=== PATIENT | male | born 1990 | race Caucasian/White ===

== ENCOUNTER 2018-02-09 12:51 | Emergency (ER) | payer SELFPAY ==
[2018-02-09] MEDS ORDERED: Sodium Chloride 0.9% 10 ML Syringe FLUSH PRN (13:04)
[2018-02-09] MEDS: Sodium Chloride 0.9% 1,000 ML IV SCH (13:15)
[2018-02-09] MEDS: Ketorolac 15 MG/ML SDV IVPUSH ONE (13:15)
[2018-02-09] MEDS: methylPREDNISolone Sodium Succinate 125 MG/2 ML SDV IVPUSH ONE (13:17)
[2018-02-09 13:59] LABS: CHLORIDE,CL 102 mmol/L (98-107); SODIUM,NA 137 mmol/L (136-145)
[2018-02-09] MEDS: Doxycycline 100 MG Cap PO ONE (13:59)
[2018-02-09 14:00] LABS: ANION GAP 12.7 mmol/L (10-20)
--- NOTE | 2018-02-09 14:03 | EDM.PDOC ---
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 As part of his job he is in [place] routinely. Reports numerous tick exposures. He states he noticed a tick on his chest and he pulled it out. This was approximately 5 days ago. No significant medical history. He does vape, drinks 3-4 times weekly of 5-6 beers. No recreational drug use. He describes his right foot becoming painful and swollen yesterday and today when he woke, both feet were swollen and painful with the right greater than left. Describes that pain as pressure. He reports it is painful to walk. He does have a historical ankle repair to the right foot due to an old fracture. Surgery performed in 2005. He has no other complaints. No chest pain, sob, abdominal pain, no blood in urine or stool and is regularly voiding both with no difficulty. Onset Date: 02/08/18 Duration: Getting Worse Location: Reports: Lower Extremity, Left, Lower Extremity, Right Quality: Reports: Pressure, Stabbing Severity: Moderate Improves with: Reports: Cold Therapy Treatments MRI TECH: Reports: Acetaminophen Bilateral Feet Pain Score (Numeric/FACES): 10 - Related Data Allergies Allergy/AdvReac Type Severity Reaction Status Date / Time No Known Allergies Allergy Verified 02/09/18 13:49 Home Meds: Home Meds . [No Known Home Meds] 02/09/18 [History] Review of Systems - Review of Systems Review Of Systems: See Below Constitutional: Reports: Chills Eyes: Reports: No Symptoms Ears: Reports: No Symptoms Nose: Reports: No Symptoms Mouth/Throat: Reports: No Symptoms Respiratory: Reports: No Symptoms Cardiovascular: Reports: Edema GI/Abdominal: Reports: No Symptoms Genitourinary: Reports: No Symptoms Musculoskeletal: Reports: Leg Pain, Foot Pain Skin: Reports: Erythema Neurological: Reports: No Symptoms Psychiatric: Reports: No Symptoms ED EXAM, GENERAL - Physical Exam Exam: See Below Exam Limited By: No Limitations General Appearance: Alert, WD/WN, Mild Distress Eye Exam: Bilateral Eye: EOMI, Normal Inspection, PERRL Ears: Normal TMs Ear Exam: Bilateral Ear: Auricle Normal, Canal Normal Nose: Normal Inspection, Normal Mucosa, No Blood Throat/Mouth: Normal Inspection, Normal Lips, Normal Teeth, Normal Gums, Normal Oropharynx, Normal Voice, No Airway Compromise Head: Atraumatic, Normocephalic Neck: Normal Inspection, Supple, Non-Tender, Full Range of Motion Respiratory/Chest: No Respiratory Distress, Lungs Clear, Normal Breath Sounds, No Accessory Muscle Use, Chest Non-Tender Cardiovascular: Normal Peripheral Pulses, Regular Rate, Rhythm, No Edema, No Gallop, No JVD, No Murmur, No Rub Peripheral Pulses: 2+: Posterior Tibial (L), Posterior Tibial (R), Dorsalis Pedis (L), Dorsalis Pedis (R) GI/Abdominal: Normal Bowel Sounds, Soft, Non-Tender, No Organomegaly, No Distention, No Abnormal Bruit, No Mass Back Exam: Normal Inspection, Full Range of Motion, NT Extremities: Normal Range of Motion, Normal Capillary Refill, Pedal Edema. No: Non-Tender (tender feet bilateral to palpation) Neurological: Alert, Oriented, CN II-XII Intact, Normal Cognition, Normal Gait, Normal Reflexes, No Motor/Sensory Deficits Psychiatric: Normal Affect, Normal Mood Skin Exam: Warm, Dry, Intact, Erythema (bilateral feet have some swelling and slight erythema) Course - Vital Signs Last Recorded V/S: Last Vital Signs Temp 37.6 C 02/09/18 12:51 Pulse 110 H 02/09/18 12:51 Resp 16 02/09/18 12:51 BP 147/85 H 02/09/18 12:51 Pulse Ox - Orders/Labs/Meds Orders: Active Orders 24 hr Category Date Time Status LYME DISEASE AB TOTAL IG EIA [REF] Routine Lab 02/09/18 13:23 Received UA W/MICROSCOPIC [URIN] Stat Lab 02/09/18 14:15 Ordered Saline Lock Insert [OM.PC] Routine Oth 02/09/18 13:04 Ordered Labs: Laboratory Tests 02/09/18 02/09/18 02/09/18 Range/Units 13:23 13:23 13:23 WBC 10.7 H (4.0-10.0) x10^3/uL RBC 4.82 (4.5-6.0) x10^6/uL Hgb 16.3 (14.0-18.0) g/dL Hct 45.3 (40.0-52.0) % MCV 94.0 H (78.0-93.0) fL MCH 33.8 H (26.0-32.0) pg MCHC 36.0 (32.0-36.0) g/dL RDW Coeff of Augustin 12.2 (10.0-15.0) % Plt Count 177 (130-400) x10^3/uL Neut % (Auto) 71.1 (50.0-80.0) % Lymph % (Auto) 16.5 L (25.0-50.0) % Towner % (Auto) 11.1 H (2.0-11.0) % Eos % (Auto) 1.0 (0.0-4.0) % Baso % (Auto) 0.3 (0.2-1.2) % ESR 11 (0-16) mm/hr Sodium 137 (136-145) mmol/L Potassium 3.7 (3.5-5.1) mmol/L Chloride 102 (98-107) mmol/L Carbon Dioxide 26 (21-32) mmol/L Anion Gap 12.7 (10-20) mmol/L BUN 7 (7-18) mg/dL Creatinine 1.0 (0.70-1.30) mg/dL Est Cr Clr Drug Dosing 136.23 mL/min Estimated GFR (MDRD) > 60 Glucose 107 H (74-106) mg/dL Lactic Acid 2.1 H* (0.4-2.0) mmol/L Uric Acid (3.5-7.2) mg/dL Calcium 8.7 (8.5-10.1) mg/dL Corrected Calcium 8.94 (8.5-10.1) mg/dL Total Bilirubin 0.8 (0.2-1.0) mg/dL AST 35 (15-37) U/L ALT 61 (16-63) U/L Alkaline Phosphatase 60 (46-116) U/L Creatine Kinase 77 (39-308) U/L C-Reactive Protein (<=0.9) mg/dL Total Protein 7.2 (6.4-8.2) g/dL Albumin 3.7 (3.4-5.0) g/dL Globulin 3.5 Albumin/Globulin Ratio 1.06 TSH, Ultra Sensitive 3.271 (0.358-3.74) uIU/mL Urine Color (YELLOW) Urine Appearance (CLEAR) Urine pH (5.0-8.0) Ur Specific [place] Urine Protein (NEGATIVE) mg/dL Urine Glucose (UA) (NEGATIVE) mg/dL Urine Ketones (NEGATIVE) mg/dL Urine Occult Blood (NEGATIVE) Urine Nitrite (NEGATIVE) Urine Bilirubin (NEGATIVE) Urine Urobilinogen (0.2) EU/dL Ur Leukocyte Esterase (NEGATIVE) Urine RBC (NOT SEEN) /HPF Urine WBC (NOT SEEN) /HPF Ur Squamous Epith Cells (NEGATIVE) /HPF Amorphous Sediment Urine Bacteria (NEGATIVE) /HPF Urine Mucus (NEGATIVE) /LPF 02/09/18 02/09/18 02/09/18 Range/Units 13:23 13:23 14:15 WBC (4.0-10.0) x10^3/uL RBC (4.5-6.0) x10^6/uL Hgb (14.0-18.0) g/dL Hct (40.0-52.0) % MCV (78.0-93.0) fL MCH (26.0-32.0) pg MCHC (32.0-36.0) g/dL RDW Coeff of Augustin (10.0-15.0) % Plt Count (130-400) x10^3/uL Neut % (Auto) (50.0-80.0) % Lymph % (Auto) (25.0-50.0) % Towner % (Auto) (2.0-11.0) % Eos % (Auto) (0.0-4.0) % Baso % (Auto) (0.2-1.2) % ESR (0-16) mm/hr Sodium (136-145) mmol/L Potassium (3.5-5.1) mmol/L Chloride (98-107) mmol/L Carbon Dioxide (21-32) mmol/L Anion Gap (10-20) mmol/L BUN (7-18) mg/dL Creatinine (0.70-1.30) mg/dL Est Cr Clr Drug Dosing mL/min Estimated GFR (MDRD) Glucose (74-106) mg/dL Lactic Acid (0.4-2.0) mmol/L Uric Acid 9.4 H (3.5-7.2) mg/dL Calcium (8.5-10.1) mg/dL Corrected Calcium (8.5-10.1) mg/dL Total Bilirubin (0.2-1.0) mg/dL AST (15-37) U/L ALT (16-63) U/L Alkaline Phosphatase (46-116) U/L Creatine Kinase (39-308) U/L C-Reactive Protein 4.3 H (<=0.9) mg/dL Total Protein (6.4-8.2) g/dL Albumin (3.4-5.0) g/dL Globulin Albumin/Globulin Ratio TSH, Ultra Sensitive (0.358-3.74) uIU/mL Urine Color [place] H (YELLOW) Urine Appearance Slightly cloudy H (CLEAR) Urine pH 5.5 (5.0-8.0) Ur Specific [place] 1.025 Urine Protein Trace H (NEGATIVE) mg/dL Urine Glucose (UA) Negative (NEGATIVE) mg/dL Urine Ketones Trace H (NEGATIVE) mg/dL Urine Occult Blood Negative (NEGATIVE) Urine Nitrite Negative (NEGATIVE) Urine Bilirubin Small H (NEGATIVE) Urine Urobilinogen 0.2 (0.2) EU/dL Ur Leukocyte Esterase Negative (NEGATIVE) Urine RBC 0-5 (NOT SEEN) /HPF Urine WBC 0-5 (NOT SEEN) /HPF Ur Squamous Epith Cells Rare (NEGATIVE) /HPF Amorphous Sediment Few Urine Bacteria Few H (NEGATIVE) /HPF Urine Mucus Many H (NEGATIVE) /LPF Meds: Medications Discontinued Medications Generic Name Dose Route Start Last Admin Trade Name Haley PRN Reason Stop Dose Admin Hydrocodone Bitart/Acetaminophen 1 packet 02/09/18 14:49 02/09/18 15:20 Take Home: Acetaminophen/Hydrocodone 325-10mg PO 02/09/18 14:50 1 packet ONETIME ONE Administration Ceftriaxone Sodium 1 gm 02/09/18 14:13 02/09/18 14:18 Rocephin IVPUSH 02/09/18 14:14 1 gm STAT ONE Administration Colchicine 1.2 mg 02/09/18 14:43 02/09/18 15:20 Colcrys PO 02/09/18 14:44 1.2 mg ONETIME ONE Administration Doxycycline Hyclate 100 mg 02/09/18 13:13 02/09/18 13:59 Vibramycin PO 02/09/18 13:14 100 mg ONETIME ONE Administration Sodium Chloride 1,000 mls @ 999 mls/hr 02/09/18 13:15 02/09/18 13:15 Normal Saline IV 999 mls/hr ASDIRECTED JAIME Administration Ketorolac Tromethamine 15 mg 02/09/18 13:05 02/09/18 13:15 Toradol IVPUSH 02/09/18 13:06 15 mg ONETIME ONE Administration Methylprednisolone Sodium Succinate 125 mg 02/09/18 13:06 02/09/18 13:17 Solu-Medrol IVPUSH 02/09/18 13:07 125 mg ONETIME ONE Administration Sodium Chloride 10 ml 02/09/18 13:04 Saline Flush FLUSH ASDIRECTED PRN Keep Vein Open Departure - Departure Time of Disposition: 15:21 Disposition: Home, Self-Care 01 Condition: Good Clinical Impression: Gout attack Qualifiers: Gout site: foot Gout etiology: unspecified cause Laterality: unspecified laterality Qualified Code(s): M10.9 - Gout, unspecified - Discharge Information Instructions: Low-Purine Eating Plan, Gout, [id number] Referrals: PCP,None [Primary Care Provider] - Forms: ED Department Discharge Additional Instructions: Please review the instructions on a low purine diet Drink plenty of water Medications prescribed today include: Medrol dose pack-take as directed on packaging with food colchicine 0.6 mg table-take 1 tablet twice a day for 5 days hydrocodone 10/325-take 1 tablet every 4-6 hours as needed for pain Follow up with a primary doctor. You may want to start taking a uric acid lowering drug like Allopurinol. Coordinate care with them. Please call us if you have any additional questions or concerns. - Problem List & Annotations (1) Gout attack SNOMED Code(s): 34843991, 30137532 Code(s): M10.9 - GOUT, UNSPECIFIED Status: Acute Priority: Low Qualifiers: Gout site: foot Gout etiology: unspecified cause Laterality: unspecified laterality Qualified Code(s): M10.9 - Gout, unspecified - Problem List Review Problem List Initiated/Reviewed/Updated: Yes - My Orders Last 24 Hours: My Active Orders 02/09/18 13:04 Saline Lock Insert [OM.PC] Routine 02/09/18 13:23 LYME DISEASE AB TOTAL IG EIA [REF] Routine 02/09/18 14:15 UA W/MICROSCOPIC [URIN] Stat - Assessment/Plan Last 24 Hours: My Active Orders 02/09/18 13:04 Saline Lock Insert [OM.PC] Routine 02/09/18 13:23 LYME DISEASE AB TOTAL IG EIA [REF] Routine 02/09/18 14:15 UA W/MICROSCOPIC [URIN] Stat Assessment:: bilateral foot gout Plan: Please review the instructions on a low purine diet Drink plenty of water Medications prescribed today include: Medrol dose pack-take as directed on packaging with food colchicine 0.6 mg table-take 1 tablet twice a day for 5 days hydrocodone 10/325-take 1 tablet every 4-6 hours as needed for pain Follow up with a primary doctor. You may want to start taking a uric acid lowering drug like Allopurinol. Coordinate care with them. Please call us if you have any additional questions or concerns.
[2018-02-09] MEDS: cefTRIAXone 1 GM Vial IVPUSH ONE (14:18)
[2018-02-09] MEDS: Take Home: Acetaminophen/HYDROcodone 325-10 MG, 5 Tab Pack PO ONE (15:20)
[2018-02-09] MEDS: Colchicine 0.6 MG Tab PO ONE (15:20)
== END 2018-02-09 15:25 | disposition home or self-care (01) ==
LOC: MERGE 12:51 → VM.ED 12:51
DX: M10.9 Gout, unspecified (principal)
CPT/HCPCS: 80053; 81001; 82550; 83605; 84443; 84550; 85025; 85652; 86140; 96361; 96374; 96375; 99283; A9270; J0696; J1885; J2930; J7030; 36415